=== PATIENT | male | born 1945 | race Caucasian/White ===

== ENCOUNTER 2020-04-21 17:14 | Inpatient (IN) | payer OTHER ==
[~2020-04-21] VITALS: Ht 175.3 cm; Wt 74.8 kg
--- NOTE | ~2020-04-21 | EMS ---
[address] [address] EMS Patient Care Report Name: ROCK MULTANI Room #: PRE M.R.#: [id number] Admission: Attend Phys: Discharge: Date of : 47 Report #: [id number] THIS REPORT FOR: //name// Report Transmitted: 04/21/2020 17:17 EMS Care Summary [facility] MED-ACT Incident [id number] @ 04/21/2020 16:26 Incident Location [address] [place] [address] Patient ROCK MULTANI Male, 74 Years 1945 Patient Address [address] [place] [address] Patient History Hypertension (HTN),Coronary Artery Bypass Graft (CABG),Myocardial Infarction (ND), Patient Allergies No known allergies, Patient Medications Aspirin, Trazodone, Pantoprazole, Metoprolol, Losartan, Plavix, Alprazolam, Chief Complaint Injury to (L) shoulder. Disposition Transported No Lights/[place] Dispatch Reason Stroke/CVA Transported To [facility] Narrative [id number] dispatched for a 74 y/o male, stroke. Arrived on scene, pt contact made [facility] [address] [place] [address] EMS Patient Care Report Name: ROCK MULTANI Room #: PRE ER Michelle#: [id number] Admission: Attend Phys: Discharge: Date of : 47 Report #: [id number] in living room of ground level apartment. Pt sitting on walker in living room upon our arrival. Alert and oriented with a GCS of 15. Pt stated he fell last night, around 1900, from a standing level to left side of body. Pt did strike head, minor laceration to left eyebrow, nonbleeding. Pt was able to get himself up but over the course of that night and next day pt's (L) shoulder became stiff and painful. Pt's other complaint is increased weakness, and a "floating feeling" where he feels he is elevated in the air and is about to fall, which has been an issue for several weeks but was worse last night before the fall, stopped shortly after the fall but started again shortly before he called 911. Assessment and vitals documented above. Pt is on a blood thinner. Pt is a diabetic, last oral intake the previous evening shortly before the fall. Pt able to walk out with assistance while seated on walker, stand and pivot with minimal assistance, secured to cot and moved to back of unit. 4 lead revealed sinus rhythm, stroke assessment unremarkable, pt did not have normal movement in left leg due to a surgery to his heel 10+ years ago. BG documented above. Enroute to [facility] per pt request. No changes enroute, radio report given to [facility] 5 minutes prior to arrival, supportive care provided rest of transport. Arrived at [facility], moved pt inside via cot transport. Moved pt over to ER bed via 3 person lift and move. Gave report to receiving RN and transferred care. Wally Maravilla Shank Paperer Initial Vitals @16:54Temp: 98.3F,Glucose: 195, @16:37P: 91,R: 16,BP: 152/87,Pain: 4/10,GCS: 15,SpO2: 94,Revised Trauma: 12, @16:51P: 34,BP: 154/68,SpO2: 95, @16:55P: 93,SpO2: 77, @17:01P: 93,SpO2: 73, @17:01P: 91,BP: 132/72,SpO2: 91, @16:51P: 29,SpO2: 93, @16:59P: 92,SpO2: 65, Assessments @17:01MENTAL:Person Oriented,Time Oriented,Event Oriented,Place Oriented,SKIN:HEENT:Head/Face: No Abnormalities,Neck/Airway: No Abnormalities,LUNG SOUNDS:General: No Abnormalities,ABDOMEN:General: No Abnormalities,PELVIS//GI:No Abnormalities,EXTREMITIES:Left Arm: Other,Right Arm: No Abnormalities,Left Leg: No Abnormalities,Right Leg: No Abnormalities,PULSE:Pedal: 2+ Normal,Radial: 2+ Normal,NEURO:No Abnormalities, Impression Injury [facility] [address] [place] [address] EMS Patient Care Report Name: ROCK MULTANI Room #: PRE M.R.#: [id number] Admission: Attend Phys: Discharge: Date of : 47 Report #: [id number] Procedures @17:01ALS AssessmentResponse: UnchangedSucceeded@16:583-Lead ECGResponse: UnchangedSucceeded Timeline 16:21,Call Received 16:21,Psap Call 16:26,Dispatched 16:27,En Route 16:31,On Scene 16:34,At Patient 16:37,BP: 152/87 M,PULSE: 91,RR: 16 R,SPO2: 94 Ox,ETCO2: ,BG: ,PAIN: 4,GCS: 15, 16:51,BP: / M,PULSE: 29,RR: R,SPO2: 93 Ox,ETCO2: ,BG: ,PAIN: ,GCS: , 16:51,BP: 154/68 M,PULSE: 34,RR: R,SPO2: 95 Ox,ETCO2: ,BG: ,PAIN: ,GCS: , 16:54,BP: / M,PULSE: ,RR: R,SPO2: Ox,ETCO2: ,B,PAIN: ,GCS: , 16:55,Depart Scene 16:55,BP: / M,PULSE: 93,RR: R,SPO2: 77 Ox,ETCO2: ,BG: ,PAIN: ,GCS: , 16:58,3-Lead ECG,Response: UnchangedSucceeded, 16:59,BP: / M,PULSE: 92,RR: R,SPO2: 65 Ox,ETCO2: ,BG: ,PAIN: ,GCS: , 17:01,ALS Assessment,Response: UnchangedSucceeded, 17:01,BP: 132/72 M,PULSE: 91,RR: R,SPO2: 91 Ox,ETCO2: ,BG: ,PAIN: ,GCS: , 17:01,BP: / M,PULSE: 93,RR: R,SPO2: 73 Ox,ETCO2: ,BG: ,PAIN: ,GCS: , 17:11,At Destination 17:15,Transfer Patient 17:31,Call Closed Disclaimer v1.1 Copyright 2020 [employer] This EMS Care Summary contains data elements from the applicable legal record (which may be displayed differently). It is designed to provide pertinent information for the following purposes: continuity of care, clinical quality, and state data reporting. The complete legal record is available to ED staff and administrators of the receiving hospital in ES's Patient Tracker. All data is provided "as is."
[2020-04-21 17:15] VITALS: BP 119/53
[2020-04-21 17:36] LABS: ABSOLUTE NEUTROPHILS 9.3 thou/uL (1.4-8.2); BASOPHILS 0.2 % (0.0-2.0); EOSINOPHILS 0.4 % (0.0-3.0); HEMATOCRIT 45.2 % (42.0-52.0); HEMOGLOBIN 14.6 gm/dL (14.0-18.0); LYMPHOCYTES 13.9 % (24.0-44.0); MCH 26.1 pg (26.0-34.0); MCHC 32.3 g/dL (28.0-37.0); PLATELET COUNT 276 thou/uL (150-400); POLYS 79.5 % (36.0-66.0); RBC 5.58 mil/uL (4.50-6.00); RDW 13.8 % (10.5-14.5); WBC 11.6 thou/uL (4.0-11.0)
[2020-04-21 17:46] LABS: ANION GAP 7 mmol/L (7-16); BUN 46 mg/dL (7-18); CALCIUM 9.9 mg/dL (8.5-10.1); CHLORIDE 101 mmol/L (98-107); CO2 28 mmol/L (21-32); CREATININE 1.9 mg/dL (0.7-1.3); GLUCOSE 247 mg/dL (74-106); POTASSIUM 4.4 mmol/L (3.5-5.1); SODIUM 136 mmol/L (136-145)
[2020-04-21 18:02] LABS: ALBUMIN 3.9 g/dL (3.4-5.0); SGOT 120 U/L (15-37); SGPT 36 U/L (16-63); TOTAL BILIRUBIN 0.7 mg/dL (0.2-1.0); TOTAL PROTEIN 7.7 g/dL (6.4-8.2); TROPONIN-I <0.06 ng/mL (<0.06)
[2020-04-21] MEDS ORDERED: DULOXETINE HCL60 MG PO (19:24)
[2020-04-21] MEDS ORDERED: HYDROCODON-ACE1 EAC7 PO (19:24)
[2020-04-21] MEDS ORDERED: PREGABALIN150 MG PO (19:32)
[2020-04-21] MEDS ORDERED: ALPRAZOLAM1 MG PO (19:32)
[2020-04-21] MEDS ORDERED: FENOFIBRATE200 MG PO (19:32)
[2020-04-21] MEDS ORDERED: EZETIMIBE10 MG PO (19:32)
[2020-04-21] MEDS ORDERED: K-DUR10 MEQ PO (19:32)
[2020-04-21] MEDS ORDERED: NORTRIPTYLINE H50 M3 PO (19:33)
[2020-04-21] MEDS ORDERED: REQUIP 1 MG TABL1 M1 PO (19:33)
[2020-04-21] MEDS ORDERED: PROTONIX40 M2 PO (19:33)
[2020-04-21] MEDS ORDERED: NOVOLOG FL100 UNIT/M SUBQ (19:33)
[2020-04-21] MEDS ORDERED: LOSARTAN POTASS50 MG PO (19:33)
[2020-04-21] MEDS ORDERED: LOPRESSOR50 PO (19:33)
[2020-04-21] MEDS ORDERED: TRAZODONE HCL50 MG PO (19:34)
[2020-04-21] MEDS ORDERED: CLOPIDOGREL75 MG PO (19:34)
[2020-04-21] MEDS ORDERED: TAMSULOSIN HCL0.4 MG PO (19:34)
[2020-04-21] MEDS ORDERED: ROSUVASTATIN CA40 MG PO (19:34)
[2020-04-21 19:40] LABS: URINE BILIRUBIN NEGATIVE (Negative); URINE BLOOD 1+ (Negative); URINE CLARITY CLEAR; URINE COLOR YELLOW; URINE GLUCOSE-RANDOM* NEGATIVE (Negative); URINE KETONES NEGATIVE (Negative); URINE LEUKOCYTES-REFLEX TRACE (Negative); URINE NITRITE-REFLEX NEGATIVE (Negative); URINE PROTEIN (DIPSTICK) NEGATIVE (Negative); URINE SPECIFIC GRAVITY >= 1.030 (1.005-1.035); URINE UROBILINOGEN 0.2 E.U./dl (0.2-1.0)
[2020-04-21 19:53] LABS: SQUAMOUS 0-3 Few /LPF (0-3); URIC ACID CRYSTALS 4-10 Moderate /LPF (None Seen); YEAST-REFLEX Present (None Seen)
[2020-04-21 19:54] LABS: CASTS None Seen /LPF (None Seen); URINE WBC-REFLEX 6-15 Few /HPF (0-5)
[2020-04-21 19:55] LABS: AMORPHOUS URATES Few /LPF (None Seen); BACTERIA-REFLEX 1-9 Few /HPF (None Seen); URINE RBC 3-10 Few /HPF (0-2)
[2020-04-22 04:16] VITALS: BP 110/43
[2020-04-22 06:01] LABS: CALCIUM 9.4 mg/dL (8.5-10.1); CREATININE 1.2 mg/dL (0.7-1.3); POTASSIUM 4.6 mmol/L (3.5-5.1)
[2020-04-22 06:05] LABS: HEMATOCRIT 40.8 % (42.0-52.0); HEMOGLOBIN 13.1 gm/dL (14.0-18.0); MCH 26.1 pg (26.0-34.0); MCV 81.6 fL (80.0-100.0); RDW 13.5 % (10.5-14.5); WBC 9.4 thou/uL (4.0-11.0)
--- NOTE | 2020-04-22 07:28 | EKG ---
[facility] [place] [address] ELECTROCARDIOGRAM REPORT Name: ROCK MULTANI Room #: 170-10 ADM IN M.R.#: [id number] Admission: 04/21/20 Attend Phys: Grace Mendez MD Discharge: Date of : 47 Report #: [id number] 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1945 Requested By: Curt Melara Order Number: [id number] MD: Leeroy Ferguson Measurements Intervals [place] Rate: 76 P: 4 [place]: 167 QRS: -11 QRSD: 98 T: 100 QT: 373 QTc: 420 Interpretive Statements Sinus rhythm Probable LVH with secondary repol abnrm Baseline wander in lead(s) V1 Compared to ECG 11/08/1999 09:06:05 No significant change was found Electronically Signed On 04-22-2020 7:28:44 CROP ADJUSTER by Leeroy Ferguson [email or web address] <ELECTRONICALLY SIGNED> By: Leeroy Ferguson MD, [facility] 04/22/20 0728 20 20 Leeroy Ferguson MD, [facility] /EPI
[2020-04-22 07:30] VITALS: BP 140/50
[2020-04-22 11:24] VITALS: BP 124/49
--- NOTE | 2020-04-22 14:06 | NUR ---
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 Pt states the night before presentation to the ED after turning a corner from his bedroom to enter the kitchen when he became dizzy and fell. Of note Pt has been taking Plavix. Patient has been admitted inpatient per hospitalist with: Rhabdomyolysis (CPK 5379), COLLIN suspected to Rhabdo dx, UTI, and subsequent Debility and weakness. Radiology exams of: CT L-spine, CT T-spine, CT C-spine, CT Facial Bone, CT head W/O contracts, XR knee, XR Elbow, XR Shoulder, XR Chest portable with PA/Lat all without significant findings. OT orders are in. Per ED assessment as well as EMS assessment the patient is A & O times 4. Attempted to reach Lidya at [phone] and recording states: "Can not take your call now". CM will follow for discharge needs pending medical request and therapy evaluation and pending recommendations will work within [employer] network.
[2020-04-22 15:14] VITALS: BP 113/45
[2020-04-22 15:42] VITALS: BP 113/45
[2020-04-22 15:56] VITALS: BP 113/45
--- NOTE | 2020-04-22 19:52 | NUR ---
PATIENT ARRIVED FROM ER AROUND 1700, PATIENT ALERT AND ORIENTED WITH PERIODS OF BEING FOGGY. PATIENT C/O BACK PAIN UPON ARRIVAL TO THE UNIT. ACCU CHECK DONE AT DINNER 160, 3 UNITS OF INSULIN GIVEN. WELCOME PACK GIVEN. ADMISSION STARTED NIGHTNURSE WILL FINISH THE ADMISSION. REPORT GIVEN TO JAYSHREE/CODY.
--- NOTE | 2020-04-22 20:00 | NUR ---
Pt. resting quietly in the bed and offers no complaints. He is alert and oriented. Admission assessment and history is completed. Bed alarm is on.
--- NOTE | 2020-04-23 05:30 | NUR ---
Upon doing patients admission he informed this nurse that his green and brown sachel was missing that had his wallet in it. Also, his walker was not in the room. I called the emergency room and they said they would look for it. This am patient upset that his belongings were still missing. Charge nurse and I searched his room and coat pockets and still unable to locate. ER was called again and charge nurse will report off to the oracle data warehouse developer this am.
[2020-04-23 05:57] LABS: HEMATOCRIT 41.3 % (42.0-52.0); HEMOGLOBIN 12.9 gm/dL (14.0-18.0); MCH 26.4 pg (26.0-34.0); MCHC 31.2 g/dL (28.0-37.0); MCV 84.4 fL (80.0-100.0); RBC 4.89 mil/uL (4.50-6.00); WBC 8.2 thou/uL (4.0-11.0)
[2020-04-23 06:17] LABS: CREATININE 0.9 mg/dL (0.7-1.3); POTASSIUM 4.5 mmol/L (3.5-5.1)
[2020-04-23 08:05] VITALS: BP 138/72
[2020-04-23 15:18] VITALS: BP 122/51
--- NOTE | 2020-04-23 17:53 | NUR ---
ASSUMED CARE OF PT AT 0700. PT ALERT AND ORIENTED IN NO ACUTE DISTRESS. FRUSTRATED THAT HIS BELONGINGS WENT MISSING IN ER, OTHERWISE VOICING NO COMPLAINTS. IVF INFUSING PER ORDER. USING URINAL. LABS SHOWING IMPROVEMENT. PT PROGRESSING TOWARD POC GOALS.
[2020-04-23 20:56] VITALS: BP 139/59
--- NOTE | 2020-04-24 05:53 | NUR ---
Pt. rested quietly at intervals during the night when checked on during frequent rounds. He was given po pain medication for c/o back pain with some relief noted (see emar). Incontinent of urine at times. Bed alarm is on.
[2020-04-24 08:15] VITALS: BP 123/56
[2020-04-24 11:47] LABS: ABSOLUTE NEUTROPHILS 5.5 thou/uL (1.4-8.2); BASOPHILS 0.5 % (0.0-2.0); EOSINOPHILS 4.2 % (0.0-3.0); HEMATOCRIT 39.6 % (42.0-52.0); HEMOGLOBIN 12.5 gm/dL (14.0-18.0); LYMPHOCYTES 18.5 % (24.0-44.0); MCH 25.9 pg (26.0-34.0); MCHC 31.6 g/dL (28.0-37.0); MCV 81.8 fL (80.0-100.0); MONOCYTES 6.5 % (1.0-8.0); PLATELET COUNT 209 thou/uL (150-400); POLYS 70.3 % (36.0-66.0); RBC 4.84 mil/uL (4.50-6.00); RDW 13.9 % (10.5-14.5); WBC 7.9 thou/uL (4.0-11.0)
[2020-04-24 11:58] LABS: CALCIUM 9.6 mg/dL (8.5-10.1); POTASSIUM 3.7 mmol/L (3.5-5.1)
--- NOTE | 2020-04-24 14:20 | NUR ---
ASSUMED PT CARE THIS AM. PT VSS, A&OX4. PT CALLS APPROPRIATELY WHEN NEEDED, FALL PRECAUTIONS IN PLACE. PT TURNING SELF APPROPRIATELY. PT IS INCONTINENT, BEING CHANGED NEEDED. MEDS TAKEN WITHOUT COMPLAINT. PAIN NOTED IN BACK, PAIN MEDS NOT WANTED BY PATIENT AT THIS TIME. PT ON TELE.
[2020-04-24 16:26] VITALS: BP 120/40
[2020-04-24 20:00] VITALS: BP 136/69
--- NOTE | 2020-04-25 03:58 | NUR ---
Pt. rested quietly during the night when checked on during frequent rounds. He did c/o back pain and po pain medication given (see emar) with some relief noted. Incontinent of urine and vinay care given. Bed alarm is on.
[2020-04-25 04:58] LABS: HEMATOCRIT 37.6 % (42.0-52.0); HEMOGLOBIN 12.3 gm/dL (14.0-18.0); MCH 26.2 pg (26.0-34.0); MCHC 32.6 g/dL (28.0-37.0); MCV 80.5 fL (80.0-100.0); RBC 4.67 mil/uL (4.50-6.00); RDW 13.6 % (10.5-14.5); WBC 7.7 thou/uL (4.0-11.0)
[2020-04-25 05:10] LABS: CALCIUM 9.4 mg/dL (8.5-10.1); POTASSIUM 3.8 mmol/L (3.5-5.1)
[2020-04-25 08:24] VITALS: BP 157/58
--- NOTE | 2020-04-25 14:34 | NUR ---
ASSUMED PT CARE THIS AM. PT PLEASANT, CALLS APPROPRIATELY WHEN NEEDED. PT COMPLAINING OF BACK PAIN, RESOLVED WITH MEDS PER EMAR. PT HAS BEEN INCONTINENT THIS SHIFT. UP WITH ASSIST, REPOSITIONS SELF IN BED. ON TELE. FALL PRECAUTIONS IN PLACE.
[2020-04-25 15:50] VITALS: BP 115/52
[2020-04-25 19:48] VITALS: BP 128/53
--- NOTE | 2020-04-26 06:58 | NUR ---
ASSUMED CARE OF PT AT 1900HRS. PT AOX4 AND LETS NEEDS BE KNOWN. FALL PRECAUTION IN PLACE. PT DENIED PAIN, NAUSEA OR SOA. PT IS CONCERNED ABOUT BILLS AND HIS BELONGINGS BEING MISSING. PT WANTED TO LEAVE AMA BUT LATER CHANGED HIS MIND. PT WAS GIVEN A WORK EXCUSE FORM. PT SLEPT PART OF THE SHIFT. REPORT GIVEN TO ONCOMING RN.
[2020-04-26 08:30] VITALS: BP 144/62
--- NOTE | 2020-04-26 11:24 | NUR ---
ASSUMED PT CARE THIS AM. PT A&OX4, COOPERATIVE WITH STAFF. PT COMPLAINS OF BACK PAIN, DENYING PAIN MEDICATION AT THIS TIME. PT REMAINS INCONTINENT. IV PATENT. MEDS TAKEN WITHOUT COMPLAINT THIS AM. PT AMBULATING TO THE CHAIR. REPOSITIONS SELF.
[2020-04-26 11:55] VITALS: BP 144/62
[2020-04-26 13:34] VITALS: BP 144/62
--- NOTE | 2020-04-26 13:40 | NUR ---
PT ADMITTED RELATED TO RHABDO,COLLIN. CM REVIEWED CHART AND SPOKE WITH CARE TEAM. CM CALLED AND SPOKE WITH PT OVER THE PHONE THIS DAY. PT INDICATED THAT HE RESIDES IN AN APARTMENT ALONE WITH NO STEPS. 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 PT INDICATED HIS WILL BE BACK FROM A TRIP TO [facility] NEXT WEEK. PT INDICATED HIS BAG AND 4WW HAD GONE MISSING IN THE ED. CM CONSULTED STAFF AND IS HAD BEEN STATED THAT PT HADN'T COME WITH ANYTHING. CM REQUESTED AND RECEIVED PERMISSION TO PROVIDE PT A 4WW THROUGH PROVIDER [employer]. IT WAS ISSUED. REFERRAL SENT TO [facility]. ANTICPATE DC HOME THIS DAY. PT'S FRIEND TO PROVIDE TRANSPORT HOME. NO OTHER CM INTERVENTION INDICATED. CASE CLOSED.
[2020-04-26 16:44] VITALS: BP 144/62
--- NOTE | 2020-04-26 17:16 | NUR ---
SPOKE WITH INTAKE AT [facility] THEY ARE AT CAPACITY AND CANNOT ACCEPT. FAXED REFERRAL TO [facility] SPOKE WITH RAVEN IN INTAKE SHE CAN ACCEPT. FAXED DC ORDERS/SUMMARY RECEIVED CONFIRMATION AND THEY WILL CALL PT TO ARRANGE VISITS.
== END 2020-04-26 16:30 | disposition home health service (06) | DRG 557 ==
LOC: ER 17:14 → 4W 20:08 → EROBS 20:08 → 4W 04-22 15:56
PROVIDERS: Hospitalist; Nurse Practitioner Family; Physician Assistant; ADMIT Internal Medicine; ATTEND Internal Medicine
DX: M62.82 Rhabdomyolysis (principal); N17.0 Acute kidney failure with tubular necrosis; N39.0 Urinary tract infection, site not specified; I69.354 Hemiplegia and hemiparesis following cerebral infarction affecting left non-dominant side; I25.10 Atherosclerotic heart disease of native coronary artery without angina pectoris; I10 Essential (primary) hypertension; E78.5 Hyperlipidemia, unspecified; N40.0 Benign prostatic hyperplasia without lower urinary tract symptoms; M16.0 Bilateral primary osteoarthritis of hip; R53.1 Weakness; E11.9 Type 2 diabetes mellitus without complications; F32.9 Major depressive disorder, single episode, unspecified; M25.512 Pain in left shoulder; M25.522 Pain in left elbow; M25.562 Pain in left knee; M25.561 Pain in right knee; M54.9 Dorsalgia, unspecified; M54.2 Cervicalgia; G47.00 Insomnia, unspecified; Z79.899 Other long term (current) drug therapy; Z79.4 Long term (current) use of insulin; Z95.1 Presence of aortocoronary bypass graft; Z79.02 Long term (current) use of antithrombotics/antiplatelets
CPT/HCPCS: 10045